=== PATIENT | male | born 1980 | race Caucasian/White ===

== ENCOUNTER 2019-01-30 10:08 | Emergency (ER) | payer BC, MEDICAID, OTHER ==
--- NOTE | 2019-01-30 13:06 | UC ---
Complaint Male HPI - HPI Summary HPI Summary: Patient is a 38-year-old male presenting with left testicular growth that he noticed on Monday. States it was uncomfortable to touch Monday night but has not experienced any discomfort or pain since. Denies trauma or injury to the testicle. Denies bruising and swelling. Patient denies any urinary symptoms including discharge and bleeding. Patient states the testicle does not feel heavy. Denies any right testicle growth. Denies fevers and chills. Denies change in appetite or any recent weight loss or weight gain. Denies any history of cryptorchidism as a child. Denies anything like this in the past. Patient states his brother was recently diagnosed with cancer and he is concerned for testicular cancer. - History of Current Complaint Chief Complaint: UCGU Stated Complaint: PERSONAL Hx Obtained From: Patient Pain Intensity: 0 - Allergies/Home Medications Allergies/Adverse Reactions: Allergies Allergy/AdvReac Type Severity Reaction Status Date / Time No Known Allergies Allergy Verified 01/30/19 10:39 Home Medications: Home Medications NK [No Home Medications Reported] 01/30/19 [History Confirmed 01/30/19] PMH/Surg Hx/FS Hx/Imm Hx Previously Healthy: Yes Other History Of: Negative For: Anticoagulant Therapy - Surgical History Surgical History: Yes Surgery Procedure, Year, and Place: heart surgery as infant, VASECTOMY 2015 - Family History Known Family History: Positive: Non-Contributory - Social History Alcohol Use: None Substance Use Type: None Smoking Status (MU): Never Smoked Tobacco Review of Systems All Other Systems Reviewed And Are Negative: Yes Constitutional: Positive: Negative Skin: Positive: Negative Respiratory: Positive: Negative Cardiovascular: Positive: Negative Gastrointestinal: Positive: Negative Genitourinary: Positive: Other - Painless lump on left testicle. Negative: Dysuria, Hematuria, Vaginal/Penile Burning, Vaginal/Penile Itching, Vaginal/ Penile Discharge, Vaginal/Penile Pain, Vaginal/Penile Tenderness, Ulceration/ Lesion, Abnormal Bleeding Musculoskeletal: Positive: Negative Neurological: Positive: Negative Physical Exam Triage Information Reviewed: Yes Appearance: Well-Appearing, No Pain Distress, Well-Nourished Vital Signs: Initial Vital Signs Temp 98.6 F 01/30/19 10:36 Pulse 63 01/30/19 10:36 Resp 18 01/30/19 10:36 BP 140/77 01/30/19 10:36 Pulse Ox 99 01/30/19 10:36 Eyes: Positive: Conjunctiva Clear ENT: Positive: Hearing grossly normal Neck: Positive: Supple Respiratory Exam: Normal Respiratory: Positive: Lungs clear, Normal breath sounds, No respiratory distress Cardiovascular Exam: Normal Cardiovascular: Positive: RRR Male Genital Exam: Positive: Normal Genitalia, Other - small round mass noted on L epididymis. no tenderness to palpation. No inguinal lymphadenopathy. Negative: Bleeding, Epididymal Tenderness, Erythema, Inguinal Tenderness, Scrotum Tenderness (R), Scrotum Tenderness (L), Testicular Tenderness (R), Testicular Tenderness (L), Urethral Discharge Neurological: Positive: Alert Psychological: Positive: Age Appropriate Behavior Skin Exam: Normal - No erythema or ecchymosis Diagnostics - Radiology US L testicular Radiology Interpretation Completed By: Radiologist Summary of Radiographic Findings: IMPRESSION: 1. 0.4 cm left epididymal cyst. 2. The left epididymis is mildly hyperemic. Epididymitis is not excluded. 3. Small left hydrocele. Complaint Male Course/Dx - Course Course Of Treatment: Ultrasound finding revealed epididymal cyst and hydrocele. Discussed findings with patient and instructed him to follow up with urology as soon as possible for further evaluation and treatment. Directed to go to the ED if he experiences worsening symptoms including severe scrotal pain. Patient voiced understanding and agreed with treatment plan. - Differential Dx/Diagnosis Provider Diagnosis: Epididymal cyst, Hydrocele in adult Discharge ED - Sign-Out/Discharge Documenting (check all that apply): Patient Departure All imaging exams completed and their final reports reviewed: Yes - Discharge Plan Condition: Stable Disposition: HOME Patient Education Materials: Hydrocele (ED), Scrotal Pain (ED) Referrals: [facility] – [place] [facility] [Outside] - If Needed Donovan Candelario MD [Medical Doctor] - As Soon As Possible Additional Instructions: As discussed, the ultrasound of your testicle revealed a cyst and hydrocele. It is important that you follow up as soon as possible with the urologist listed below for further evaluation and treatment. Go to the emergency room if you experience severe pain, changes in urination, fever, nausea, or vomiting. - Billing Disposition and Condition Condition: STABLE Disposition: Home
[2019-01-30 14:55] VITALS: BP 149/95
== END 2019-01-30 15:25 | disposition home or self-care (01) ==
LOC: UCEAST 10:08
DX: N43.3 Hydrocele, unspecified (principal); N50.3 Cyst of epididymis
CPT/HCPCS: 76870; 99212; G0463

== ENCOUNTER 2019-03-06 10:31 | Emergency (ER) | payer MEDICAID, OTHER ==
[2019-03-06 10:54] VITALS: BP 160/96
[2019-03-06] MEDS ORDERED: Tetan/Diph/Pertus SYR(Tdap)* 0.5 ML SYR(BOOSTRIX) use SYR contains LATEX IM ONE (11:00)
--- NOTE | 2019-03-06 11:23 | UC ---
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 HE WAS WEARING SAFETY GOGGLES THAT WERE KNOCKED OFF. HE SUSTAINED AN INJURY TO HIS LEFT EYE WELL SUPERFICIAL ABRASIONS TO HIS LEFT CHEEK AND EYEBROW. UNKNOWN DATE OF LAST TETANUS. HE DOES WEAR CONTACT LENSES. HE REPORTS HE TOOK HIS LEFT CONTACT LENS OUT WHICH SEEMED INTACT BUT HE HAS VERY BLURRY VISION. CANNOT MAKE OUT ANY SHARP LINES, ONLY SHADES OF LIGHT. DENIES PAIN OR FB SENSATION. - History of Current Complaint Chief Complaint: UCEye Stated Complaint: EYE ISSUE Time Seen by Provider: 03/06/19 10:52 Hx Obtained From: Patient Onset/Duration: Sudden Onset, Lasting Minutes, Still Present Timing: Constant Severity Initially: Moderate Severity Currently: Moderate Pain Intensity: 0 Pain Scale Used: 0-10 Numeric Location of Injury: Globe - LEFT Aggravating Factor(s): Nothing Alleviating Factor(s): Nothing Associated Signs And Symptoms: Positive: Vision Impairment Left. Negative: Drainage (Clear) - Allergies/Home Medications Allergies/Adverse Reactions: Allergies Allergy/AdvReac Type Severity Reaction Status Date / Time No Known Allergies Allergy Verified 03/06/19 10:48 PMH/Surg Hx/FS Hx/Imm Hx Cardiovascular History: Cardiac Disease - ARRYTHMIA AN INFANT - HAD SURGERY Other History Of: Negative For: Anticoagulant Therapy - Surgical History Surgical History: Yes Surgery Procedure, Year, and Place: heart surgery as , VASECTOMY 2016 - Family History Known Family History: Positive: Non-Contributory - Social History Alcohol Use: None Substance Use Type: None Smoking Status (MU): Never Smoked Tobacco Review of Systems All Other Systems Reviewed And Are Negative: Yes Constitutional: Positive: Negative Eyes: Positive: Blurred Vision, Eye Redness. Negative: Drainage, Photophobia Respiratory: Positive: Negative Cardiovascular: Positive: Negative Gastrointestinal: Positive: Negative Physical Exam Triage Information Reviewed: Yes Appearance: Well-Appearing, No Pain Distress, Well-Nourished Vital Signs: Initial Vital Signs Temp 98.3 F 03/06/19 10:48 Pulse 74 03/06/19 10:48 Resp 18 03/06/19 10:48 BP 160/96 03/06/19 10:48 Pulse Ox 99 03/06/19 10:48 Vital Signs Reviewed: Yes Eyes: Positive: Conjunctiva Inflamed - LEFT EYE, Other: - LEFT EYE CLOUDY. POSSIBLE HYPHEMA. Negative: Discharge ENT: Positive: Hearing grossly normal Neck: Positive: Supple Respiratory: Positive: No respiratory distress, No accessory muscle use Cardiovascular: Positive: Pulses Normal Abdomen Description: Positive: Soft Musculoskeletal: Positive: No Edema Neurological: Positive: Alert Psychological: Positive: Age Appropriate Behavior Skin: Positive: Other - SUPERFICIAL ABRASION LEFT CHEEK AND ACROSS LEFT EYBROW Eye Complaint Course/Dx - Course Course Of Treatment: CONCERN FOR HYPHEMA DUE TO TRAUMATIC INJURY OF LEFT EYE. TDAP BOOSTED TODAY. 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 NOEL WHO ADVISED PATIENT COME DIRECTLY TO HIS OFFICE FOR IMMEDIATE EVALUATION. PATIENT WILL HEAD DIRECTLY THERE FROM HERE. - Differential Dx/Diagnosis Provider Diagnosis: Traumatic injury of globe of left eye, Abrasion, face w/o infection Discharge ED - Sign-Out/Discharge Documenting (check all that apply): Patient Departure All imaging exams completed and their final reports reviewed: No Studies - Discharge Plan Condition: Stable Disposition: HOME Patient Education Materials: Hyphema (ED) Referrals: Josue Noel MD [Medical Doctor] - (GO DIRECTLY TO DR. NOEL'S OFFICE FROM HERE. THEY ARE EXPECTING YOU) Additional Instructions: I'M CONCERNED ABOUT THE TRAUMATIC INJURY TO YOUR LEFT EYEBALL. YOU MAY HAVE SOME BLOOD IN THE ANTERIOR CHAMBER. GO DIRECTLY TO DR. NOEL'S OFFICE FROM HERE. THEY'RE EXPECTING YOU. KEEP THE EYE PATCH ON UNTIL SEEN. TETANUS IMMUNIZATION GIVEN (TDAP): You have been given an immunization against tetanus. Please record this in your records. In general, a booster is needed only once every 10 years. The tetanus shot protects against tetanus or "lockjaw," which is a complication of certain wound infections (the tetanus shot cannot protect against the actual infection). The immunization site may become warm and red due to local reaction. If this occurs, apply warm compresses and take aspirin or ibuprofen to reduce inflammation and discomfort. Return for evaluation if the reaction becomes severe. - Billing Disposition and Condition Condition: STABLE Disposition: Home
== END 2019-03-06 11:22 | disposition home or self-care (01) ==
LOC: UCEAST 10:31
DX: S00.212A Abrasion of left eyelid and periocular area, initial encounter (principal); S00.81XA Abrasion of other part of head, initial encounter; S05.8X2A Other injuries of left eye and orbit, initial encounter; Z23 Encounter for immunization; W29.8XXA Contact with other powered hand tools and household machinery, initial encounter; Y92.9 Unspecified place or not applicable
CPT/HCPCS: 90715; 99212; G0463